=== PATIENT | female | born 1930 | race Caucasian/White ===

== ENCOUNTER → 2016-09-03 | Outpatient (CLI) | payer OTHER, BC | LOC: BMCIMAGING 10:46 | PROVIDERS: ATTEND Podiatrist Foot & Ankle Surgery | DX: M19.071 Primary osteoarthritis, right ankle and foot (principal) ==

== ENCOUNTER 2016-11-16 06:20 | Inpatient (IN) | payer OTHER, BC ==
[~2016-11-16 06:20] MED LIST: ROPIVACAINE 0.2% 80 MG, EPINEPHrine 0.2 MG in BAG 0 ML IU ONE
--- NOTE | 2016-11-16 06:43 | PDHPUP ---
History & Physical Update H&P update statement: This history and physical update is based on an assessment of the patient which was completed after admission or registration (within 24 hours), but prior to the surgery/procedure.
[2016-11-16] MEDS ORDERED: KETOROLAC 15 MG/1 ML SDV IVP ONE (06:45)
--- NOTE | 2016-11-16 06:45 | PDIAF ---
- Diagnosis Diagnosis: left shoulder fracture Code Status: Full Code - Medication Management Discharge Medications: Medications to Continue on Transfer Atorvastatin Calcium [Lipitor 40 mg (*)] 40 mg PO DAILY@1900 07/16/14 [Last Taken 08/04/14] Azelastine HCl [Astepro] 1 spray EACHNARE DAILY PRN 07/16/14 [Last Taken ] Clopidogrel Bisulfate [Plavix (*)] 75 mg PO DAILY 07/16/14 [Last Taken 11/10/16 11:10] Lisinopril [Zestril 40 mg (*)] 40 mg PO BID 07/16/14 [Last Taken 08/06/14] C/E/Zn/Cu/OM3/DHA/EPA/LUT/ZEAX [Preservision Areds 2 Softgel] 1 each PO BID 02/05 [Last Taken Unknown] Carvedilol [Coreg (*)] 25 mg PO BIDMEAL 10/30/16 [Last Taken Unknown] Donepezil HCl [Aricept 5 MG (*)] 10 mg PO DAILY 10/30/16 [Last Taken Unknown] Herbals/Supplements -Info Only 1 each PO DAILY 10/30/16 [Last Taken Unknown] Multivitamins [Multivitamin (*)] 1 each PO DAILY 10/30/16 [Last Taken Unknown] Pantoprazole Sodium [Protonix 40mg (*)] 40 mg PO DAILY 10/30/16 [Last Taken Unknown] Timolol 0.5% [TIMOPTIC 0.5% (*)] 1 drops EACHEYE DAILY 10/30/16 [Last Taken Unknown] Discharge Medications: Refer to the Discharge Home Medication list for PRN reason. - Orders Services needed: Physical Therapy Activity/Weight Bearing Restrictions: pendulum rom. daily dressing changes. may shower without bandage. no soaking. sling when not performing pendulum exercises. f/u at two weeks. seek attn for increasing pain, drainage, or other complaint - Follow Up Care Current Providers and Referrals: Lana Griggs MD [Primary Care Provider] -
[2016-11-16] MEDS ORDERED: Azelastine Hcl [Astepro] 1 SPRAY EACHNARE PRN (06:48)
[2016-11-16] MEDS ORDERED: VANCOMYCIN HCL/NORMAL SALINE 250 ML IV SCH (07:00)
[2016-11-16] MEDS ORDERED: VANCOMYCIN PHARMACY TO DOSE MISC ONE (07:07)
[2016-11-16] MEDS ORDERED: LR 1,000 ML IV SCH (07:07)
[2016-11-16] MEDS ORDERED: ACETAMINOPHEN 500 MG TAB PO ONE (07:07)
[2016-11-16] MEDS ORDERED: LR 1,000 ML IV ONE (07:21)
[2016-11-16] MEDS ORDERED: LIDOCAINE 1% 2 ML INJ ID PRN (07:21)
[2016-11-16] MEDS ORDERED: THROMBIN (BOVINE) 5,000 UNIT VIAL TP ONE (07:27)
[2016-11-16] MEDS ORDERED: BACITRACIN 50,000 UNITS/10 ML SYR IRR ONE (07:28)
[2016-11-16] MEDS ORDERED: CALCIUM CHLORIDE 1 GM/10 ML INJ ONE (07:28)
[2016-11-16] MEDS ORDERED: POLYMYXIN B SULFATE 500,000 UNIT/10 ML SYR IRR ONE (07:29)
[2016-11-16] MEDS ORDERED: VANCOMYCIN HCL/NORMAL SALINE 250 ML IV ONE (07:30)
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
[2016-11-16] MEDS ORDERED: BUPIVACAINE 0.5% 30 ML SDV ONE (07:58)
[2016-11-16] MEDS ORDERED: fentaNYL 100 MCG/2 ML INJ ONE (08:01)
[2016-11-16] MEDS ORDERED: PROPOFOL 200 MG/20 ML VIAL ONE (08:01)
[2016-11-16] MEDS ORDERED: PHENYLEPHRINE 10 MG/ML SDV ONE (08:02)
[2016-11-16] MEDS ORDERED: LIDOCAINE 2% 5 ML SDV ONE (08:02)
[2016-11-16] MEDS ORDERED: DEXAMETHASONE 4 MG/ML VIAL ONE (08:02)
[2016-11-16] MEDS ORDERED: ROCURONIUM 100 MG/10 ML VIAL ONE (08:02)
[2016-11-16] MEDS ORDERED: ONDANSETRON 4 MG/2 ML VIAL ONE (08:02)
[2016-11-16] MEDS ORDERED: Herbals/Supplements -Info Only PO SCH (09:00)
[2016-11-16] MEDS ORDERED: HYDROmorphONE/DILAUDID 1 MG/ML SYR IVP PRN (10:08)
[2016-11-16] MEDS ORDERED: NALOXONE HCL 0.4 MG/ML INJ IVP PRN (10:08)
[2016-11-16] MEDS ORDERED: fentaNYL 100 MCG/2 ML INJ IVP PRN (10:08)
[2016-11-16] MEDS ORDERED: PROMETHAZINE HCL 25 MG/ML INJ IVP PRN (10:08)
[2016-11-16] MEDS ORDERED: ONDANSETRON 4 MG/2 ML VIAL IVP PRN (10:08)
--- NOTE | 2016-11-16 10:39 | POSTANESTH ---
Post Anesthetic Evaluation Cardiovascular Status: Normal, Stable Respiratory Status: Normal, Stable Level of Consciousness/Mental Status: Can Participate in Eval Pain Control: Adequate, Prn Tx Ordered Nausea/Vomiting Control: Adequate, Prn Tx Ordered Complications Possibly Related to Anesthesia: None Noted
[2016-11-16] MEDS ORDERED: KETOROLAC 15 MG/1 ML SDV ONE (11:28)
[2016-11-16] MEDS: D5W 1/2 NS W/ 20 KCl/L 1,000 ML IV SCH ×2 (12:50→23:35)
[2016-11-16] MEDS: PRESERVISION AREDS2 FORMULA EYE VIT 1 EACH PO SCH ×2 (12:53→20:01)
[2016-11-16] MEDS: CARVEDILOL 25 MG TAB PO SCH ×2 (12:53→17:11)
[2016-11-16] MEDS: DONEPEZIL HCL 5 MG TAB PO SCH (12:53)
[2016-11-16] MEDS: LISINOPRIL 40 MG TAB PO SCH ×2 (12:54→20:01)
[2016-11-16] MEDS: KETOROLAC 15 MG/1 ML SDV IVP SCH ×3 (12:54→23:29)
[2016-11-16] MEDS: PANTOPRAZOLE SODIUM 40 MG TAB PO SCH (12:56)
[2016-11-16] MEDS: MULTIVITAMINS 1 EACH TAB PO SCH (12:56)
[2016-11-16] MEDS: TIMOLOL 0.5% 15 ML OPHT.BTL EACHEYE SCH (12:56)
[2016-11-16] MEDS: ATORVASTATIN CALCIUM 40 MG TAB PO SCH (17:10)
[2016-11-17] MEDS: OXYCODONE/APAP 5/325 TAB PO PRN ×6 (04:05→22:56)
[2016-11-17] MEDS: KETOROLAC 15 MG/1 ML SDV IVP SCH (05:20)
--- NOTE | 2016-11-17 08:16 | GDS ---
[f rep st] DISCHARGE SUMMARY ADMISSION DIAGNOSIS: Left proximal humerus fracture. DISCHARGE DIAGNOSIS: Left proximal humerus fracture. PROCEDURE: Left reverse total shoulder arthroplasty. OPERATIVE INDICATIONS: The patient is an 86-year-old woman who sustained a mechanical fall and comp bradley fracture to her proximal humerus of her left arm. She has gross comminution and displacement of articular surface. I have recommended surgical intervention with reverse shoulder replacement give n the disruption of her bony anatomy and rotator cuff. She understood the risks, benefits, alternat indu, and wished to proceed. Written consent was signed and placed in patient's chart. HOSPITAL COURSE: The patient was admitted to the hospital after uncomplicated reverse shoulder arth roplasty. She tolerated the procedure well. She did have an interscalene block placed by Anesthesi a for postoperative pain relief. At the time of discharge, she is tolerating an oral diet. Her katia n is well controlled on oral medicine. She is voiding without difficulty. She has been cleared by Physical Therapy. She desires subacute nursing placement. DISCHARGE ACTIVITY: She is pendulum range of motion. Otherwise, she is in a sling. Daily dressing changes. May shower without the bandage. No soaking or immersion. Seek attention for increasing redness, swelling, drainage, discharge, or other focal complaint. DISCHARGE MEDICATIONS: Oxycodone 5 mg 1-2 every 4 hours p.r.n. pain. She may resume her Plavix in 48 hours. /[id number]/MODL
[2016-11-17] MEDS: CARVEDILOL 25 MG TAB PO SCH ×2 (08:32→18:03)
[2016-11-17] MEDS: DONEPEZIL HCL 5 MG TAB PO SCH (08:33)
[2016-11-17] MEDS: MULTIVITAMINS 1 EACH TAB PO SCH (08:33)
[2016-11-17] MEDS: PRESERVISION AREDS2 FORMULA EYE VIT 1 EACH PO SCH ×2 (08:33→21:15)
[2016-11-17] MEDS: LISINOPRIL 40 MG TAB PO SCH ×2 (08:34→21:15)
[2016-11-17] MEDS: PANTOPRAZOLE SODIUM 40 MG TAB PO SCH (08:34)
[2016-11-17] MEDS: TIMOLOL 0.5% 15 ML OPHT.BTL EACHEYE SCH (10:16)
[2016-11-17] MEDS: ATORVASTATIN CALCIUM 40 MG TAB PO SCH (19:33)
[2016-11-17] MEDS ORDERED: ONDANSETRON 4 MG/2 ML VIAL IVP PRN (20:43)
[2016-11-17] MEDS ORDERED: POLYETHYLENE GLYCOL 3350 17 GM PKT PO PRN (20:44)
[2016-11-17] MEDS ORDERED: LACTULOSE 20 GM/30 ML UDCUP PO PRN (20:44)
[2016-11-17] MEDS ORDERED: BISACODYL 10 MG SUPP PR PRN (20:44)
[2016-11-17] MEDS ORDERED: MAGNESIUM HYDROXIDE 30 ML UDCUP PO PRN (20:44)
[2016-11-17] MEDS: ONDANSETRON DISINTEGRATING 4 MG TAB PO PRN (21:08)
[2016-11-17] MEDS: SENNOSIDES/DOCUSATE SODIUM TAB PO SCH (21:14)
[2016-11-18] MEDS: OXYCODONE/APAP 5/325 TAB PO PRN ×2 (01:57→14:16)
--- NOTE | 2016-11-18 06:38 | SOAPPROG ---
SOAP Progress Note Assessment/Plan: Assessment: s/p rev tsa Plan:awaiting 3 midnights for medicare clearance then transfer to [facility] no acute medical or surgical issues stable for transfer continue pt/ot 11/18/16 06:36 Subjective: nauseated yesterday currently pain control improved minimal nausea Objective: Vital Signs Temp Pulse Resp BP Pulse Ox 36.9 C 56 L 16 146/62 H 98 11/17/16 23:05 11/18/16 04:00 11/18/16 04:00 11/18/16 04:00 11/18/16 04:00 11/17/16 11/18/16 11/19/16 05:59 05:59 05:59 Intake Total 2760 400 Output Total 100 650 Balance 2660 -250 dressing intact intact pdf toes warm and pink neg homans vivien xrays anatomic alignment ICD10 Worksheet Patient Problems: Problems Problem Status Onset Ovarian cyst Acute
[2016-11-18] MEDS: PRESERVISION AREDS2 FORMULA EYE VIT 1 EACH PO SCH ×2 (08:20→21:27)
[2016-11-18] MEDS: CARVEDILOL 25 MG TAB PO SCH ×2 (08:20→18:18)
[2016-11-18] MEDS: SENNOSIDES/DOCUSATE SODIUM TAB PO SCH ×2 (08:21→21:27)
[2016-11-18] MEDS: DONEPEZIL HCL 5 MG TAB PO SCH (08:21)
[2016-11-18] MEDS: MULTIVITAMINS 1 EACH TAB PO SCH (08:21)
[2016-11-18] MEDS: ENOXAPARIN 40 MG/0.4 ML SYR SC SCH (08:21)
[2016-11-18] MEDS: PANTOPRAZOLE SODIUM 40 MG TAB PO SCH (08:21)
[2016-11-18] MEDS: LISINOPRIL 40 MG TAB PO SCH ×2 (08:21→22:47)
[2016-11-18] MEDS: TIMOLOL 0.5% 15 ML OPHT.BTL EACHEYE SCH (08:23)
[2016-11-18 11:18] VITALS: RESP 16
--- NOTE | 2016-11-18 16:37 | ASMTCMCOM ---
CM Note CM Note Notes: Therapies rec SNF. Yesterday referrals sent to [facility] \T\ [facility] per pt/family request : pt accepted at both; would like to d/c to [facility]. PASRR completed \T\ in chart. Date Signed: 11/18/2016 04:36 PM Electronically Signed By:Yajaira Smith
[2016-11-18] MEDS: ATORVASTATIN CALCIUM 40 MG TAB PO SCH (18:18)
[2016-11-19] MEDS: ONDANSETRON DISINTEGRATING 4 MG TAB PO PRN (00:29)
[2016-11-19] MEDS: OXYCODONE/APAP 5/325 TAB PO PRN (04:29)
[2016-11-19 07:26] VITALS: BP 132/64; PULSE 59; TEMP 98; O2SAT 98
--- NOTE | 2016-11-19 07:38 | GOP ---
[f rep st] OPERATIVE REPORT DATE OF OPERATION: 11/16/2016 SURGEON: Colton Benton MD WHEEL ASSEMBLER: Charles Epps, SMALL ARMS ARTILLERY REPAIRER, METAL FINISHER, surgical rn who was a medical necessity for the entire ty of the case. PREOPERATIVE DIAGNOSIS: Left proximal humerus fracture and rotator cuff disruption. POSTOPERATIVE DIAGNOSIS: Left proximal humerus fracture and rotator cuff disruption. PROCEDURE PERFORMED: Left reverse total shoulder arthroplasty. FINDINGS: SPECIMENS: To Pathology, the bony explant of the head. INDICATIONS: The patient is an 86-year-old woman who sustained a mechanical fall and a complex frac ture to her left proximal humerus fracture. She has disruption of her glenohumeral joint with fract uring of the articular surface and disruption of her rotator cuff. Given her age and this fracture, I have recommended surgical replacement with a reverse total shoulder arthroplasty to facilitate ea rly range of motion and early functional recovery. She understood the risks, benefits, and alternat indu, and wished to proceed. Written consent was signed and placed in the patient's chart. DESCRIPTION OF PROCEDURE: The patient was identified in the preanesthesia area. The left shoulder clearly demarcated as operative site with indelible marker. She was given 2 g of Ancef intravenousl y en route to the operative suite. In the OR, general endotracheal anesthesia was administered. At tention was turned to the left shoulder which was sterilely prepped and draped in the usual fashion. An interscalene block was placed by Anesthesia. She was positioned in the beach chair position af ter general endotracheal anesthesia. Appropriate time-out procedure was carried out. The limb was sterilely prepped and draped in the usual fashion. An anterior deltopectoral incision was made. Th ick subcutaneous flaps were elevated followed by placement of a self-retained retractor in the deep tissues. The rotator cuff interval was opened. The biceps tendon tagged for later repair and the s houlder entered. The articular surface was fragmented and pointed directly superior. The greater t uberosity was fragmented with attachment of the overlying rotator cuff. The proximal cut was made w ith the arm in 20 degrees of external rotation and the proximal fragment of the head withdrawn. Howie e marginal small fragments of bone were likewise irrigated free. Attention was first turned to the glenoid. Retractors were placed, Facilitating full visualization of the glenoid. The remnants of t he shoulder labrum were sharply excised. A guide pin was placed in the central inferior portion of the glenoid surface. The surrounding periphery was then reamed. The superior aspect of the glenoid was reamed with a separate reamer and the central canal placed. A metaglene component was then sec ured with 3 locking and 1 nonlocking screw. A 38 mm glenosphere was then placed and attention turne d to the stem. The canal was opened and serial broaching carried out to a size 10 stem. A reaming for a size 1 asymmetrical apophyses was then placed. This was secured in a 10 degree retroverted po sition and trial reduction was carried out. Ultimately, a 38 mm +6 poly spacer was selected. The f inal stem was then assembled on the back table, impacted to the appropriate depth. Additional trial ing was carried out and a 38 mm +6 polyethylene spacer was then placed and secured. The wound was c opiously irrigated with pulsatile lavage solution. The rotator cuff was repaired with #1 Ethibond s uture to the best ability possible. The biceps was incorporated into this. Deep tissue was injecte d with a joint cocktail of ropivacaine, morphine, Toradol, and epinephrine. The wound was then clos ed in layers using 0 Vicryl, 2-0 Monocryl, and amy. Sterile dressing was applied. The patient was awakened, extubated, taken to the recovery room in good, stable condition. TOTAL TOURNIQUET TIME: None. COMPLICATIONS: None. IMPLANTS: DePuy Delta Xtend metaglene component, 4 screws, 38 mm standard glenosphere, size 10 dist al stem, size 1 left epiphysis and a 38+ 6 mm polyethylene. DISPOSITION: To the recovery room then the floor for postoperative management. /[id number]/MODL
[2016-11-19] MEDS: ENOXAPARIN 40 MG/0.4 ML SYR SC SCH (08:36)
[2016-11-19] MEDS: SENNOSIDES/DOCUSATE SODIUM TAB PO SCH (08:37)
[2016-11-19] MEDS: MULTIVITAMINS 1 EACH TAB PO SCH (08:37)
[2016-11-19] MEDS: LISINOPRIL 40 MG TAB PO SCH (08:38)
[2016-11-19] MEDS: PRESERVISION AREDS2 FORMULA EYE VIT 1 EACH PO SCH (08:39)
[2016-11-19] MEDS: DONEPEZIL HCL 5 MG TAB PO SCH (08:43)
[2016-11-19] MEDS: CARVEDILOL 25 MG TAB PO SCH (08:43)
[2016-11-19] MEDS: PANTOPRAZOLE SODIUM 40 MG TAB PO SCH (08:44)
--- NOTE | 2016-11-19 08:49 | PDIAF ---
- Diagnosis Diagnosis: left shoulder fracture Code Status: Full Code - Medication Management Discharge Medications: Medications to Continue on Transfer Atorvastatin Calcium [Lipitor 40 mg (*)] 40 mg PO DAILY@1900 07/16/14 [Last Taken 11/15/16] Azelastine HCl [Astepro] 1 spray EACHNARE DAILY PRN 07/16/14 [Last Taken ] Lisinopril [Zestril 40 mg (*)] 40 mg PO BID 07/16/14 [Last Taken 11/15/16] C/E/Zn/Cu/OM3/DHA/EPA/LUT/ZEAX [Preservision Areds 2 Softgel] 1 each PO BID 02/05 [Last Taken 11/09/16] Carvedilol [Coreg (*)] 25 mg PO BIDMEAL 10/30/16 [Last Taken 11/16/16] Donepezil HCl [Aricept 5 MG (*)] 10 mg PO DAILY 10/30/16 [Last Taken 11/16/16] Herbals/Supplements -Info Only 1 each PO DAILY 10/30/16 [Last Taken 11/09/16] Multivitamins [Multivitamin (*)] 1 each PO DAILY 10/30/16 [Last Taken 11/09/16] Pantoprazole Sodium [Protonix 40mg (*)] 40 mg PO DAILY 10/30/16 [Last Taken ] Timolol 0.5% [TIMOPTIC 0.5% (*)] 1 drops EACHEYE DAILY 10/30/16 [Last Taken ] oxyCODONE/APAP 5/325 [Percocet 5/325 (*)] 1 - 2 tab PO Q3HRS PRN #60 tab [Last Taken Unknown] Discharge Medications: Refer to the Discharge Home Medication list for PRN reason. - Orders Services needed: Physical Therapy, Occupational Therapy Diet Recommendation: no restrictions on diet Diet Texture: Regular Texture Diet Activity/Weight Bearing Restrictions: pendulum rom. daily dressing changes. may shower without bandage. no soaking. sling when not performing pendulum exercises. f/u at two weeks. seek attn for increasing pain, drainage, or other complaint - Follow Up Care Current Providers and Referrals: Lana Griggs MD [Primary Care Provider] -
[2016-11-19] MEDS: TIMOLOL 0.5% 15 ML OPHT.BTL EACHEYE SCH (09:45)
--- NOTE | 2016-11-19 15:16 | ASDISCHSUM ---
Discharge Information Plan Status:SNF Medically Cleared to Leave: Discharge Date:11/19/2016 12:29 PM D/C Disposition:Care Home Facility ADT D/C Disposition:Care Home Facility Projected Discharge Date:11/18/2016 11:00 AM Transportation at D/C:Family Discharge Delay Reason: Follow-Up Date:11/18/2016 11:00 AM Discharge Slot: Final Diagnosis: Placement Information Referral Type:*Detention/SNF Referral ID:[id number] Provider Name:[facility] Address 1:[address] Address 2: City:[place] Selection Factors: State:[place] Patient Contact Information Contact Name:YESSI Relationship:Son Address: City:[place] Alternate Phone: State/Zip Code:[place] Email: Financial Information Financial Class: Primary Plan Desc:MEDICARE INPATIENT Primary Plan Number:[id number] Secondary Plan Desc: OUT OF [facility] Secondary Plan Number:[id number] Assessment Information BC CM Progress Note CM Note CM Note Notes: Therapies rec SNF. Yesterday referrals sent to [facility] \\ [facility] per pt/family request: pt accepted at both; would like to d/c to [facility]. PANDYA completed \T\ in chart. Date Signed: 11/18/2016 04:36 PM Electronically Signed By:Yajaira Smith Intervention Information Intervention Type:*IM-Signed Date of Service:11/19/2016 12:22 PM Patient Type:Inpatient Staff Member:Angela Duffy Hours: Discipline: Severity: Comment:
--- NOTE | 2016-11-19 15:18 | ASMTCMCOM ---
CM Note CM Note Notes: Pt medically stable for d/c to [facility]. Orders faxed, L[facility] called report. Pt son transport her. Date Signed: 11/19/2016 03:18 PM Electronically Signed By:Yajaira Smith
== END 2016-11-19 12:29 | DRG 483 ==
LOC: F3N 06:20
PROVIDERS: ADMIT Orthopaedic Surgery; ATTEND Orthopaedic Surgery
PROC: 0RRK00Z Replacement of Left Shoulder Joint with Reverse Ball and Socket Synthetic Substitute, Open Approach (ICD-10-PCS; principal; 2016-11-16 08:30)
DX: S42.202A Unspecified fracture of upper end of left humerus, initial encounter for closed fracture (principal); S43.422A Sprain of left rotator cuff capsule, initial encounter; V78.4XXA Person boarding or alighting from bus injured in noncollision transport accident, initial encounter; E78.5 Hyperlipidemia, unspecified; K21.9 Gastro-esophageal reflux disease without esophagitis; I10 Essential (primary) hypertension; I25.10 Atherosclerotic heart disease of native coronary artery without angina pectoris; Z95.5 Presence of coronary angioplasty implant and graft; Z85.3 Personal history of malignant neoplasm of breast; Y92.9 Unspecified place or not applicable
CPT/HCPCS: 97110-GP; 97116-GP; 97162-GP; 97165-GO; 97535-GO; C1713; G8978-GP-CJ; G8979-GP-CI; G8987-GO-CK; G8988-GO-CI; J0171; J1100; J1650; J1885; J2370; J2405; J2704; J2795; J3010; J3370

== ENCOUNTER → 2017-01-01 | Outpatient (CLI) | payer OTHER, BC | LOC: BMCIMAGING 13:18 | PROVIDERS: ATTEND Physician Assistant | DX: Z47.1 Aftercare following joint replacement surgery (principal); Z96.612 Presence of left artificial shoulder joint ==

== ENCOUNTER → 2017-02-15 | Outpatient (CLI) | payer OTHER, BC | LOC: BMCIMAGING 09:26 | PROVIDERS: ATTEND Orthopaedic Surgery | DX: Z09 Encounter for follow-up examination after completed treatment for conditions other than malignant neoplasm (principal); Z96.612 Presence of left artificial shoulder joint ==

== ENCOUNTER 2017-04-03 23:31 | Inpatient (IN) | payer OTHER, BC ==
[2017-04-03] MEDS ORDERED: NS 500 ML IV ONE (23:34)
--- NOTE | 2017-04-03 23:37 | EDPHY ---
H & P HPI/ROS: HPI CHIEF COMPLAINT: Chest pain HISTORY OF PRESENT ILLNESS: Patient very pleasant 86-year-old female, history of hypertension hyperlipidemia and coronary artery disease with 2 stents, she presents to the emergency room by EMS from [facility] for chest pain. She she states she no longer has chest discomfort that this time. However for the past 4 hr she has been having some substernal chest discomfort she describes as indigestion/dull ache. It does not radiate anywhere. She has associated nausea with but no vomiting. She denies neck pain jaw pain denies arm pain or back pain. Denies abdominal pain. This started at rest. No diaphoresis. Denies pleuritic pain. Denies significant shortness of breath. Patient receive full-dose aspirin and nitroglycerin prior to arrival. After nitroglycerin her discomfort went away. Past Medical History: Hypertension, hyperlipidemia, coronary artery disease Past Surgical History: Multiple surgeries including multiple orthopedic surgeries, appendectomy Social History: Denies daily use of drugs alcohol tobacco resides at [facility]. Family History: Noncontributory ROS REVIEW OF SYSTEMS: A comprehensive 10 point review of systems is otherwise negative aside from elements mentioned in the history of present illness. Exam Constitutional appears well nontoxic triage nursing summary reviewed, vital signs reviewed, awake/alert. Eyes normal conjunctivae and sclera, EOMI, PERRLA. HENT normal inspection, atraumatic, moist mucus membranes, no epistaxis, neck supple/ no meningismus, no raccoon eyes. Respiratory clear to auscultation bilaterally, normal breath sounds, no respiratory distress, no wheezing. Cardiovascular rate normal, regular rhythm, no murmur, no edema, distal pulses normal. Gastrointestinal soft, non-tender, no rebound, no guarding, normal bowel sounds, no distension, no pulsatile mass. Genitourinary no CVA tenderness. Musculoskeletal no midline vertebral tenderness, full range of motion, no calf swelling, no tenderness of extremities, no meningismus, good pulses, neurovascularly intact. Skin pink, warm, & dry, no rash, skin atraumatic. Neurologic awake, alert and oriented x 3, AAOx3, moves all 4 extremities equally, motor intact, sensory intact, CN II-XII intact, normal cerebellar, normal vision, normal speech. Psychiatric normal mood/affect. Heme/Lymph/Immune no lymphadenopathy. Differential diagnosis includes but is not limited to: ACS, atypical chest pain , pneumothorax, pneumonia, pulmonary embolism, aortic dissection, congestive heart failure, tumor, musculoskeletal pain, esophageal pain, GERD, peptic ulcer disease, pancreatitis Medical Decision Making: Plan for this patient IV establishment full manager cardiac cath, EKG, troponin, basic blood work, chest x-ray Re-evaluation: EKG interpretation by me on record in [employer] system. Impression time of EKG 2348, sinus rhythm rate of 56. Otherwise no acute ischemic change appreciated. No ST elevation. 1237: Spoke with the hospitalist service Dr. Mulligan, agrees to admit this patient for chest discomfort. She is chest pain-free at this time. Vital signs are hemodynamically stable. Noted to have a negative D-dimer negative troponin nonischemic EKG. Patient's cardiovascular risk factors include her age, hypertension, hyperlipidemia, coronary artery disease with known stents Source: Patient, EMS - Medical/Surgical History Hx Asthma: No Hx Chronic Respiratory Disease: No Hx Diabetes: No Hx Cardiac Disease: No Hx Renal Disease: No Hx Cirrhosis: No Hx Alcoholism: No Hx HIV/AIDS: No Hx Splenectomy or Spleen Trauma: No Other PMH: rt ka. cataract. l4-5 lami. angioplasty, 2 stents. lumpectomy for brst ca right// colitis and chronic constipation: BSO a few years ago for cyst. appy. tonsils. hand and foot surgey - Social History Smoking Status: Former smoker Constitutional: Initial Vital Signs Temperature (C) 36.4 C 04/03/17 23:34 Heart Rate 62 04/03/17 23:34 Respiratory Rate 18 04/03/17 23:34 Blood Pressure 142/65 H 04/03/17 23:34 O2 Sat (%) 95 04/03/17 23:34 O2 Delivery Mode Room Air O2 (L/minute) 2 Allergies/Adverse Reactions: amoxicillin [Amoxicillin] Allergy (Unknown, Verified 11/03/16 10:54) Rash diclofenac sodium [From Voltaren] Allergy (Unknown, Verified 11/03/16 10:54) Rash lactose Allergy (Verified 04/03/17 23:56) Opioids - Morphine Analogues Allergy (Verified 11/03/16 10:54) Itching Penicillins Allergy (Verified 11/03/16 10:54) Rash sunscreen lotion Allergy (Unknown, Uncoded 07/23/14 11:38) Rash Home Medications: Medication Instructions Recorded Atorvastatin Calcium [Lipitor 40 40 mg PO DAILY@1900 07/16/14 mg (*)] Azelastine HCl [Astepro] 1 spray EACHNARE DAILY PRN 07/16/14 Lisinopril [Zestril 40 mg (*)] 40 mg PO BID 07/16/14 C/E/Zn/Cu/OM3/DHA/EPA/LUT/ZEAX 1 each PO BID 10/30/16 [Preservision Areds 2 Softgel] Carvedilol [Coreg (*)] 25 mg PO BIDMEAL 10/30/16 Donepezil HCl [Aricept 5 MG (*)] 10 mg PO DAILY 10/30/16 Herbals/Supplements -Info Only 1 each PO DAILY 10/30/16 Multivitamins [Multivitamin (*)] 1 each PO DAILY 10/30/16 Pantoprazole Sodium [Protonix 40mg 40 mg PO DAILY 10/30/16 (*)] Timolol 0.5% [TIMOPTIC 0.5% (*)] 1 drops EACHEYE DAILY 10/30/16 Medical Decision Making - Diagnostics Imaging Results: Imaging Impressions Chest X-Ray 04/03/17 23:34 Impression: Clear lungs. No acute process. - Data Points Laboratory Results: Laboratory Results 04/03/17 23:30 04/03/17 23:30 04/03/17 04/03/17 04/03/17 23:30 23:30 23:30 WBC 4.97 10^3/uL 10^3/uL (3.80-9.50) RBC 4.25 10^6/uL 10^6/uL (4.18-5.33) Hgb 13.9 g/dL g/dL (12.6-16.3) Hct 38.0 % % (38.0-47.0) MCV 89.4 fL fL (81.5-99.8) MCH 32.7 pg pg (27.9-34.1) MCHC 36.6 g/dL g/dL (32.4-36.7) RDW 12.5 % % (11.5-15.2) Plt Count 176 10^3/uL 10^3/uL (150-400) MPV 11.8 fL H fL (8.7-11.7) Neut % (Auto) 34.8 % L % (39.3-74.2) Lymph % (Auto) 52.7 % H % (15.0-45.0) Dolores % (Auto) 9.1 % % (4.5-13.0) Eos % (Auto) 2.8 % % (0.6-7.6) Baso % (Auto) 0.4 % % (0.3-1.7) Nucleat RBC Rel Count 0.0 % % (0.0-0.2) Absolute Neuts (auto) 1.73 10^3/uL 10^3/uL (1.70-6.50) Absolute Lymphs (auto) 2.62 10^3/uL 10^3/uL (1.00-3.00) Absolute Monos (auto) 0.45 10^3/uL 10^3/uL (0.30-0.80) Absolute Eos (auto) 0.14 10^3/uL 10^3/uL (0.03-0.40) Absolute Basos (auto) 0.02 10^3/uL 10^3/uL (0.02-0.10) Absolute Nucleated RBC 0.00 10^3/uL 10^3/uL (0-0.01) Immature Gran % 0.2 % % (0.0-1.1) Immature Gran # 0.01 10^3/uL 10^3/uL (0.00-0.10) PT 12.7 SEC SEC (12.0-15.0) INR 0.93 (0.83-1.16) APTT 33.7 SEC SEC (23.0-38.0) D-Dimer 0.40 ug/mLFEU ug/mLFEU (0.00-0.50) Sodium 141 mEq/L mEq/L (135-145) Potassium 4.4 mEq/L mEq/L (3.5-5.2) Chloride 101 mEq/L mEq/L (97-110) Carbon Dioxide 24 mEq/l mEq/l (22-31) Anion Gap 16 mEq/L mEq/L (8-16) BUN 14 mg/dL mg/dL (7-23) Creatinine 0.9 mg/dL mg/dL (0.6-1.0) Estimated GFR 60 Glucose 127 mg/dL H mg/dL (70-100) Calcium 10.6 mg/dL H mg/dL (8.5-10.4) Magnesium 1.9 mg/dL mg/dL (1.6-2.3) Total Bilirubin 0.4 mg/dL mg/dL (0.1-1.4) Conjugated Bilirubin 0.2 mg/dL mg/dL (0.0-0.5) Unconjugated Bilirubin 0.2 mg/dL mg/dL (0.0-1.1) AST 28 IU/L IU/L (14-46) ALT 42 IU/L IU/L (9-52) Alkaline Phosphatase 98 IU/L IU/L (38-126) Creatine Kinase 106 IU/L IU/L (0-156) CK-MB (CK-2) Fraction 2.29 ng/mL ng/mL (0.00-3.19) Troponin I < 0.012 ng/mL ng/mL (0.000-0.034) NT-Pro-B Natriuret Pep 144 pg/mL pg/mL (0-450) Total Protein 6.5 g/dL g/dL (6.3-8.2) Albumin 4.4 g/dL g/dL (3.5-5.0) Lipase 202 IU/L IU/L (23-300) Medications Given: Discontinued Medications Sodium Chloride (Ns) 500 mls @ 1,000 mls/hr IV EDNOW ONE PRN Reason: Protocol Stop: 04/04/17 00:03 Last Admin: 04/03/17 23:45 Dose: 500 mls Nitroglycerin (Nitrostat) 0.4 mg SL EDNOW ONE Stop: 04/04/17 00:28 Last Admin: 04/04/17 00:28 Dose: 0.4 mg Departure - Departure Disposition: [facility] Inpatient Acute Clinical Impression: Chest pain Qualifiers: Chest pain type: unspecified Qualified Code(s): R07.9 - Chest pain, unspecified Condition: Fair Referrals: Patient,NotPresent [Unknown] - As per Instructions
[2017-04-03 23:47] LABS: PLATELET COUNT 176 10^3/uL (150-400)
--- NOTE | 2017-04-03 23:50 | CPEKG ---
Heart Rate: 56 RR Interval: 1071 P-R Interval: 160 QRSD Interval: 86 QT Interval: 432 QTC Interval: 417 P [place]: 70 QRS [place]: 55 T Wave [place]: 68 EKG Severity - BORDERLINE ECG - EKG Impression: SINUS RHYTHM EKG Impression: BORDERLINE INFERIOR Q WAVES Electronically Signed By: Lasha Shoemaker 04-Apr-2017 06:33:47
[2017-04-03 23:55] LABS: INR 0.93 (0.83-1.16); PROTIME(PATIENT) 12.7 SEC (12.0-15.0)
[2017-04-03 23:58] LABS: CREATINE KINASE 106 IU/L (0-156)
[2017-04-04] MEDS ORDERED: NITROGLYCERIN 0.4 MG BTL SL ONE ×2 (00:26→00:27)
[2017-04-04] MEDS ORDERED: ACETAMINOPHEN 325 MG TAB PO PRN (01:14)
[2017-04-04] MEDS ORDERED: ONDANSETRON 4 MG/2 ML VIAL IVP PRN (01:14)
[2017-04-04] MEDS ORDERED: NITROGLYCERIN 0.4 MG BTL SL PRN (01:16)
[2017-04-04 06:34] LABS: CREATINE KINASE 78 IU/L (0-156)
--- NOTE | 2017-04-04 06:50 | GHP ---
[f rep st] HISTORY AND PHYSICAL DATE OF ADMISSION: 04/04/2017 PCP: Dr. Griggs Primary Computer Typesetter: Dr. Guerrero. SOURCE: Patient provides history, appears reliable. Her electronic medical record was reviewed and case discussed with ED provider. CHIEF COMPLAINT: Chest pain. HISTORY OF PRESENT ILLNESS: This is a very pleasant 86-year-old female with past medical history significant for CAD with history of stent to the LAD in 2010, hypertension, hyperlipidemia, GERD, glaucoma, and IBS with constipation predominant, who presents to the emergency department today with complaints of chest pain. Patient reports that the pain had been ongoing for approximately 4 hours following her dinner. Patient states that she developed some mild substernal pressure and discomfort. She denies any associated shortness of breath, diaphoresis, radiating pain. Patient states she took her bra off to get more comfortable, which did help minimally, but her chest pain continued to progress and patient's discomfort escalated to 7 to 8/10 before EMS was called, and patient received nitroglycerin with resolution of her chest discomfort. Patient also received full-dose aspirin prior to her arrival in the emergency department, and upon arrival patient's chest pain had subsided. The patient denies any recent orthopnea, PND, lower extremity edema. The patient reports that she is generally quite active. She has recently transferred to [facility] for additional rehabilitation following a fall status post a left total shoulder replacement. The patient reports that she does try to remain active and has not had any chest pain similar to this in the past. The patient also notes that she is late for her annual stress testing due to her recent fall and recovery. REVIEW OF SYSTEMS: Negative except for GI. Patient is reporting constipation of 1 day, 24 hours, which is not unusual with her history of IBS constipation type. ALLERGIES: Penicillin, opiates, Voltaren gel, sunscreen. HOME MEDICATIONS: As per EMR: Timolol, Protonix 40 daily, multivitamin daily, lisinopril 40 mg p.o. twice daily, herbal supplements p.o. daily, Aricept 10 mg p.o. daily, Coreg 25 mg p.o. twice daily with meals, PreserVision AREDS2 soft gels 1 tab p.o. twice daily, Azelastine 1 spray in each nare daily p.r.n., atorvastatin 40 mg p.o. at nighttime. PAST MEDICAL HISTORY: Significant for hypertension, CAD with history of stent to the LAD in 2011, hyperlipidemia, GERD, breast cancer, dementia, glaucoma, IBS constipation type. PAST SURGICAL HISTORY: Significant for appendectomy, wisdom tooth removal, right lumpectomy in age 50s, cardiac cath with stent to LAD, left total shoulder arthroplasty, cataract extraction with lens placement. FAMILY HISTORY: Significant for father with CAD and age 72 from an ID. Mother with history of hypertension, at 93 with multiple other medical problems. Son who is healthy. SOCIAL HISTORY: Patient resides at [facility] in an apartment. She does not currently smoke, drink, or do drugs. She reports only rare alcohol use. She quit smoking age 48, but has a 30 pack-year history. CODE STATUS: Full. Patient desires son Coy Yun to act as proxy if needed. PHYSICAL EXAMINATION: VITAL SIGNS: Upon arrival to the ER, blood pressure 142/ 65, heart rate 62, respiratory rate 18, O2 saturation 95% on room air with a temperature 36.4. VITAL SIGNS: Vitals at time of interview available, blood pressure 150/69, heart rate 56, respiratory rate 18, O2 sats 93% on room air. GENERAL: No acute distress. Very pleasant, elderly, frail-appearing female who is lying quietly in bed. She does appear fatigued. HEAD: Normocephalic, atraumatic. EYES: Extraocular muscles grossly intact. Pupils equal, round, reactive to light bilaterally and symmetric. Lens reflex appreciated bilaterally. ENT: Mucous membranes appear slightly dry. Dentition in fair condition. No oropharyngeal erythema or exudates. No nasal discharge. NECK: Supple. Trachea midline. CV: Regular rate and rhythm, slightly bradycardic, without any appreciated murmurs, rubs, or gallops. RESPIRATORY: Lungs are clear to auscultation bilaterally. Diminished at the bases. No wheezes, no rales or rhonchi. ABDOMEN: Positive bowel sounds. Soft, nontender to palpation. No rebound, guarding or masses. : No suprapubic tenderness to palpation. No Lehman catheter in place. EXTREMITIES: Patient with generalized deconditioning. 4/5 strength in the upper and lower extremities. The patient is able to sit up independently. NEURO: Grossly nonfocal. No facial drooping. Moves all extremities. Patient is awake, alert, and oriented x3. PSYCH: Thought process content and questions are currently appropriate. LABORATORY STUDIES: WBC 4.97, H and H is 13.9 and 38.0, MCV of 89.4, platelet count is 176, no bands. PT is 12.7, INR 0.93, PTT is 33.7, D-dimer 0.40. Sodium is 141, potassium 4.4, chloride is 101, CO2 is 24, anion gap 16, BUN 14, creatinine 0.9, GFR 60, glucose 127, calcium 10.6, magnesium is 1.9, total bilirubin 0.4, ALT 42, AST 28, alkaline phosphatase 98, CK is 106, CK-MB is 2.29 , troponins are negative, BTNP is 144, total protein 6.5, albumin 4.4, lipase is 202. EKG reviewed myself and compared to EKG in 2010, without significant changes showing small Q-waves in the inferolateral leads, no acute ST elevations, sinus vasquez in the 50s, QTc is 417. Chest x-ray image report reviewed, minimal diffuse peribronchial thickening unchanged since May 2010, normal heart size, stent overlying left side of the heart unchanged, reversed left shoulder arthroplasty. ASSESSMENT AND PLAN: Pleasant 86-year-old female with history of coronary artery disease, hypertension, hyperlipidemia, who presents to the emergency department with 4 hours of chest discomfort. 1. Chest pain. Differential diagnosis including angina versus pleuritic versus reflux related. Patient's chest pain did improve following a dose of nitroglycerin. Her initial EKG and troponin are nondiagnostic. We will plan to trend cardiac enzymes. Nitroglycerin p.r.n. The patient with allergy to opiates, so will hold off currently. Symptoms are controlled. Patient with multiple risk factors, and anticipate if ruled out, cardiac stress testing in the morning. Patient with history of fall injury and significant arthritis, will be unable to complete a treadmill stress test. A dobutamine stress test will be ordered after serial cardiac enzymes are negative. 2. Coronary artery disease. We will check a lipid panel. Continue Juan J and beta al as well as statin therapy and daily aspirin. 3. Benign essential hypertension. Juan J and beta al as noted above. 4. Hyperlipidemia. Continue statin. Check a lipid panel. 5. Hyperglycemia. Patient without history of diabetes, this is a nonfasting lab, we will plan to check in the morning, as well as obtain an A1c. 6. Glaucoma. Resume patient's drops once list is reconciled. 7. Irritable bowel syndrome with constipation. Bowel regimen will be ordered. 8. Dementia. The patient was recently started on Aricept for declining memory. Currently appears oriented x3. 9. Fluid, electrolyte, nutrition: Cardiac diet. N.p.o. after midnight. Electrolyte replacement p.r.n. No IV fluids. 10. Prophylaxis: Sequential compression devices. Anticoagulation, if no further intervention is appropriate after stress results. 11. Code status is full. Patient desires her son to act as proxy if needed. DISPOSITION: Patient is admitted to observation status at this time on PCU. This is pending further evaluation and cardiac studies. /[id number]/MODL MTDD
[2017-04-04] MEDS ORDERED: ENOXAPARIN 40 MG/0.4 ML SYR SC SCH (09:00)
--- NOTE | 2017-04-04 11:54 | CPEKG ---
Heart Rate: 56 RR Interval: 1071 P-R Interval: 168 QRSD Interval: 84 QT Interval: 420 QTC Interval: [address]: [address]: 77 EKG Severity - NORMAL ECG - EKG Impression: SINUS RHYTHM Electronically Signed By: Fareed Vargas 05-Apr-2017 04:30:40
[2017-04-04] MEDS ORDERED: AZELASTINE HCL EACHNARE PRN (14:09)
--- NOTE | 2017-04-04 14:11 | HOSPPROG ---
Hospitalist Progress Note Assessment/Plan: # Acute chest pain - began hours prior to presentation - troponin< 0.012 on admit -> 0.02 EKG (personally reviewed and interpreted) no acute ischemic changes oxygen saturations 95% on RA - repeat EKG remains unchanged - nuclear stress test this afternoon # CAD - as above - await stress results - cont plavix, statin, carvedilol and lisinopril # Dementia - cont aricept # proph - lovnox # diet- NPO until stress results # dispo - < 2MN if stress negative I have discussed the case with Dr. Vargas - plan for stress as 2nd EKG remains unchanged Subjective: cp resolved Objective: Vital Signs Temp Pulse Resp BP Pulse Ox 36.9 C 54 L 18 160/66 H 95 04/04/17 10:57 04/04/17 12:00 04/04/17 12:00 04/04/17 12:00 04/04/17 12:00 Laboratory Results 04/04/17 06:03 04/03/17 04/04/17 04/05/17 05:59 05:59 05:59 Intake Total 1000 Balance 1000 PT 12.7 SEC (12.0-15.0) 04/03/17 23:30 INR 0.93 (0.83-1.16) 04/03/17 23:30 - Physical Exam Constitutional: appears nourished Eyes: anicteric sclera Ears, Nose, Mouth, Throat: moist mucous membranes Cardiovascular: regular rate and rhythym, systolic murmur Respiratory: no respiratory distress Gastrointestinal: normoactive bowel sounds Genitourinary: no bladder fullness Skin: warm Musculoskeletal: No asymmetric calves Neurologic: AAOx3 Psychiatric: interacting appropriately, not anxious Lymph, Heme, Immunologic: no cervical LAD ICD10 Worksheet Patient Problems: Problems Problem Status Onset Chest pain Acute Ovarian cyst Acute
[2017-04-04] MEDS ORDERED: AZELASTINE NASAL MDI EACHNARE PRN (14:13)
[2017-04-04] MEDS: CARVEDILOL 25 MG TAB PO SCH (17:20)
--- NOTE | 2017-04-04 18:07 | PDMN ---
Medical Necessity Medical necessity: C/M review: est. > 2 MN LOS for eval and TX of acute chest pain, 04/04/2017 abnormal myocardial perfusion scan requiring planned 04/05/2016 myocardial perfusion scan, ongoing cardiac monitoring, troponin monitoring, comorbid CAD, dementia per 04/04/2017 Hospitalist progress note.
[2017-04-04] MEDS ORDERED: ATORVASTATIN CALCIUM 40 MG TAB PO SCH (19:00)
[2017-04-04] MEDS: PRESERVISION AREDS2 FORMULA EYE VIT 1 EACH PO SCH (21:00)
[2017-04-04] MEDS: LISINOPRIL 40 MG TAB PO SCH (21:03)
[2017-04-05] MEDS: PRESERVISION AREDS2 FORMULA EYE VIT 1 EACH PO SCH (08:29)
[2017-04-05] MEDS: LISINOPRIL 40 MG TAB PO SCH (08:29)
[2017-04-05] MEDS: CARVEDILOL 25 MG TAB PO SCH (08:29)
[2017-04-05] MEDS ORDERED: MULTIVITAMINS 1 EACH TAB PO SCH (09:00)
[2017-04-05] MEDS ORDERED: TIMOLOL 0.5% 15 ML OPHT.BTL EACHEYE SCH (09:00)
[2017-04-05] MEDS ORDERED: CLOPIDOGREL BISULFATE 75 MG TAB PO SCH (09:00)
[2017-04-05] MEDS ORDERED: PANTOPRAZOLE SODIUM 40 MG TAB PO SCH (09:00)
[2017-04-05] MEDS ORDERED: DONEPEZIL HCL 5 MG TAB PO SCH (09:00)
[2017-04-05 13:52] VITALS: BP 128/74; PULSE 57; RESP 17; TEMP 97.9; O2SAT 95
--- NOTE | 2017-04-05 18:42 | GDS ---
[f rep st] DISCHARGE SUMMARY DISCHARGE DIAGNOSES: Include. 1. Acute chest pain. 2. Coronary artery disease. 3. Hypertension. HISTORY OF PRESENT ILLNESS: This is an 86-year-old female with known history of coronary artery dise ase, who presents with complaints of chest pain. For details of the patient's initial presentation, please see the history and physical dated 04/04/2017. CONSULTATIVE SERVICES: None. PROCEDURES: On 04/04/2017, patient underwent myocardial stress testing which showed evidence of old infarction and no inducible ischemia. HOSPITAL COURSE: By issue: 1. Acute chest pain. Patient's symptoms resolved in the emergency department. With known coronary artery disease, she was admitted for serial troponins and stratification. Patient underwent stress i maging on 04/04 which was positive; therefore, patient was kept overnight to obtain rest images. Res t images on the day of disposition confirm the presence of an old infarction with no inducible ischem ia. Patient is treated with appropriate medical management for her known coronary artery disease on Plavix, statin, lisinopril and carvedilol. She is being discharged for outpatient followup with her primary clothespin machine operator, Dr. Guerrero. 2. Coronary artery disease. As above, we have continued her appropriate medical regimen for coronar y disease. Patient will follow with Dr. Guerrero in the next 2-3 weeks for post disposition followup. MEDICATIONS: At the time of disposition, please reference the med rec printed on 04/05/2017. Of not e, no changes were made to her medication regimen. FOLLOWUP APPOINTMENTS: Include with Dr. Guerrero in the next 2-3 weeks for post disposition followup and ongoing titration of her cardiac regimen. I spent greater than 30 minutes in the planning and coordination of this discharge. /[id number]/MODL
--- NOTE | 2017-04-06 15:45 | ASDISCHSUM ---
Discharge Information Plan Status:Home with No Needs Medically Cleared to Leave:04/04/2017 Discharge Date:04/05/2017 05:53 PM CM D/C Disposition:Home, Routine, Self-Care ADT D/C Disposition:Home, Routine, Self-Care Projected Discharge Date:04/05/2017 12:00 AM Transportation at D/C:Family Discharge Delay Reason: Follow-Up Date:04/05/2017 12:00 AM Discharge Slot: Final Diagnosis:CP Placement Information Patient Contact Information Contact Name:IVORYSABAS Relationship:Son Address: City:[place] Alternate Phone: [facility]/Zip Code:[place] Email: Financial Information Financial Class: Primary Plan Desc:MEDICARE INPATIENT Primary Plan Number:[id number] [facility] Secondary Plan Number:[id number] Assessment Information Case Management Discharge Plan Note Case Management Discharge Discharge Order Complete? Answers: Yes Patient to Obtain Answers: via Family Medications Transportation Arranged Answers: Family/Friends Transport will Pick (Date 04/05/2017 12:00 AM & Time) Family Notified Answers: Yes Notes: Son to transport Discharge Comments Notes: *6 yr old female admitted for CP. She has a hx of CAD with a stent to LAD, HTN, HLD, GERD, IBS-constipation, Glaucoma, dementia. She lives at [facility]. Patient had cardiac work-up incl stress test (-). To discharge home no discharge needs. Date Signed: 04/05/2017 04:53 PM Electronically Signed By:Radha Cruz LCSW Intervention Information
== END 2017-04-05 17:53 | disposition home or self-care (01) | DRG 313 ==
LOC: EDUNIT# → F2N 04-04 11:07 → OBSVTOIN 04-04 15:02 → F2N 04-04 15:24
PROVIDERS: ADMIT Family Medicine; ATTEND Hospitalist
DX: R07.9 Chest pain, unspecified (principal); I25.10 Atherosclerotic heart disease of native coronary artery without angina pectoris; I10 Essential (primary) hypertension; E78.5 Hyperlipidemia, unspecified; K21.9 Gastro-esophageal reflux disease without esophagitis; H40.9 Unspecified glaucoma; F03.90 Unspecified dementia, unspecified severity, without behavioral disturbance, psychotic disturbance, mood disturbance, and anxiety; I25.2 Old myocardial infarction; Z96.611 Presence of right artificial shoulder joint; Z95.5 Presence of coronary angioplasty implant and graft; Z85.3 Personal history of malignant neoplasm of breast
CPT/HCPCS: A9500

== ENCOUNTER → 2017-05-10 | Outpatient (CLI) | payer OTHER, BC | LOC: BMCIMAGING 14:58 | PROVIDERS: ATTEND Family Medicine | DX: R05 Cough (principal); Z96.612 Presence of left artificial shoulder joint ==

== ENCOUNTER → 2017-05-24 | Outpatient (CLI) | payer OTHER, BC | LOC: BMCIMAGING 10:50 | PROVIDERS: ATTEND Physician Assistant | DX: Z47.1 Aftercare following joint replacement surgery (principal); Z96.612 Presence of left artificial shoulder joint ==

== ENCOUNTER → 2017-06-18 | Outpatient (CLI) | payer OTHER, BC ==
[~2017-06-18] MED LIST changes: +GADOBUTROL 10 ML VIAL IVP ONE; -ROPIVACAINE 0.2% 80 MG, EPINEPHrine 0.2 MG in BAG 0 ML IU ONE
== END ==
LOC: FIMAGING 07:54
PROVIDERS: ATTEND Psychiatry & Neurology Neurology
DX: R93.0 Abnormal findings on diagnostic imaging of skull and head, not elsewhere classified (principal); G31.9 Degenerative disease of nervous system, unspecified; M85.2 Hyperostosis of skull
CPT/HCPCS: 70553; A9585

== ENCOUNTER → 2017-07-08 | Outpatient (CLI) | payer OTHER, BC | LOC: BMCIMAGING 09:01 | PROVIDERS: ATTEND Internal Medicine | DX: Z12.31 Encounter for screening mammogram for malignant neoplasm of breast (principal); Z85.3 Personal history of malignant neoplasm of breast ==

== ENCOUNTER → 2017-12-06 | Outpatient (CLI) | payer OTHER, BC | LOC: BMCIMAGING 10:52 | PROVIDERS: ATTEND Orthopaedic Surgery | DX: Z12.31 Encounter for screening mammogram for malignant neoplasm of breast (principal); Z85.3 Personal history of malignant neoplasm of breast ==

== ENCOUNTER 2017-12-29 17:25 | Emergency (ER) | payer OTHER, BC ==
--- NOTE | 2017-12-29 17:48 | EDPHY ---
H & P Time Seen by Provider: 12/29/17 17:44 HPI/ROS: CHIEF COMPLAINT: Vomiting and diarrhea for 3 days HISTORY OF PRESENT ILLNESS: Patient is had vomiting and diarrhea for the past 3 days. Associated with body aches and feeling thirsty, she tried to eat breakfast this morning she felt a little bit better and she kept vomiting her last episode was at 3:00 p.m.. Associated with some abdominal soreness, fatigue , worse with eating. No blood or coffee grounds in the emesis, no melena. Symptoms are severe. REVIEW OF SYSTEMS: Eye: no change in vision ENT: no sore throat Cardiac: no chest pain or syncope Pulmonary: no cough or SOB Abdomen: HPI Musculoskeletal: Myalgias Skin: no rash Neuro: no headache Constitutional: no fever : no urinary symptoms A comprehensive 10 point review of systems is otherwise negative aside from elements mentioned in the history of present illness. PAST MEDICAL HISTORY: Includes angioplasty with stenting, breast cancer lumpectomy, colitis, constipation, appendectomy Social history: Lives at [facility], here with her son General Appearance: Alert and conversant, cooperative. Eyes: No scleral icterus. ENT, Mouth: slightly dry mucous membranes. Respiratory: Normal respiratory effort, breath sounds equal, lungs are clear to auscultation. Cardiovascular: Regular rate and rhythm. Gastrointestinal: Abdomen is soft and non tender. Neurological: Alert, face symmetric, normal motor and sensory in extremities. Skin: Warm and dry, no rashes. Musculoskeletal: No peripheral edema. Psychiatric: Not agitated. Emergency Department course/MDM: Patient presents with severe vomiting and diarrhea, benign abdominal exam, dehydrated on examination. Plan for antiemetics and IV fluids, check electrolytes and laboratory. 1843: Results discussed, will treat with IV cephalosporin given severe skin rash only reaction to penicillins, only vancomycin documented previously in [place] 1951: States she feels better, no vomiting, has been up to the bathroom and feels stable on her feet. She would like to go home if possible and I think that is reasonable. Son in agreement. Not hypotensive or tachycardic, electrolytes and creatinine are normal. Antiemetics and oral antibiotic for UTI. Did not have any adverse or allergic reaction to cephalosporin. Smoking Status: Former smoker Constitutional: Initial Vital Signs Temperature (C) 36.4 C 12/29/17 17:39 Heart Rate 57 L 12/29/17 17:39 Respiratory Rate 16 12/29/17 17:39 Blood Pressure 160/72 H 12/29/17 17:39 O2 Sat (%) 95 12/29/17 17:39 O2 Delivery Mode Room Air Allergies/Adverse Reactions: amoxicillin [Amoxicillin] Allergy (Unknown, Verified 11/03/16 10:54) Rash diclofenac sodium [From Voltaren] Allergy (Unknown, Verified 11/03/16 10:54) Rash lactose Allergy (Verified 04/03/17 23:56) Opioids - Morphine Analogues Allergy (Verified 11/03/16 10:54) Itching Penicillins Allergy (Verified 11/03/16 10:54) Rash sunscreen lotion Allergy (Unknown, Uncoded 07/23/14 11:38) Rash Home Medications: Medication Instructions Recorded Atorvastatin Calcium [Lipitor 40 40 mg PO DAILY@1900 07/16/14 mg (*)] Azelastine HCl [Astepro] 1 spray EACHNARE DAILY PRN 07/16/14 Lisinopril [Zestril 40 mg (*)] 40 mg PO BID 07/16/14 C/E/Zn/Cu/OM3/DHA/EPA/LUT/ZEAX 1 each PO BID 10/30/16 [Preservision Areds 2 Softgel] Carvedilol [Coreg (*)] 25 mg PO BIDMEAL 10/30/16 Donepezil HCl [Aricept 5 MG (*)] 10 mg PO DAILY 10/30/16 Multivitamins [Multivitamin (*)] 1 each PO DAILY 10/30/16 Pantoprazole Sodium [Protonix 40mg 40 mg PO DAILY 10/30/16 (*)] Timolol 0.5% [TIMOPTIC 0.5% (*)] 1 drops EACHEYE DAILY 10/30/16 Clopidogrel Bisulfate [Plavix (*)] 75 mg PO DAILY 04/04/17 Cephalexin [Keflex] 500 mg PO QID #28 cap 12/29/17 Medical Decision Making Differential Diagnosis: Differential diagnosis considered for nausea and vomiting including but not limited to urinary tract infection, gastroenteritis, gastritis, appendicitis, and medication side effect. - Data Points Laboratory Results: Laboratory Results 12/29/17 18:00 12/29/17 18:00 12/29/17 12/29/17 12/29/17 18:00 18:00 17:54 WBC 9.51 10^3/uL H 10^3/uL (3.80-9.50) RBC 4.82 10^6/uL 10^6/uL (4.18-5.33) Hgb 15.1 g/dL g/dL (12.6-16.3) Hct 42.9 % % (38.0-47.0) MCV 89.0 fL fL (81.5-99.8) MCH 31.3 pg pg (27.9-34.1) MCHC 35.2 g/dL g/dL (32.4-36.7) RDW 12.1 % % (11.5-15.2) Plt Count 156 10^3/uL 10^3/uL (150-400) MPV 11.7 fL fL (8.7-11.7) Neut % (Auto) 75.3 % H % (39.3-74.2) Lymph % (Auto) 13.6 % L % (15.0-45.0) [place] % (Auto) 9.4 % % (4.5-13.0) Eos % (Auto) 1.1 % % (0.6-7.6) Baso % (Auto) 0.3 % % (0.3-1.7) Nucleat RBC Rel Count 0.0 % % (0.0-0.2) Absolute Neuts (auto) 7.17 10^3/uL H 10^3/uL (1.70-6.50) Absolute Lymphs (auto) 1.29 10^3/uL 10^3/uL (1.00-3.00) Absolute Monos (auto) 0.89 10^3/uL H 10^3/uL (0.30-0.80) Absolute Eos (auto) 0.10 10^3/uL 10^3/uL (0.03-0.40) Absolute Basos (auto) 0.03 10^3/uL 10^3/uL (0.02-0.10) Absolute Nucleated RBC 0.00 10^3/uL 10^3/uL (0-0.01) Immature Gran % 0.3 % % (0.0-1.1) Immature Gran # 0.03 10^3/uL 10^3/uL (0.00-0.10) Sodium 137 mEq/L mEq/L (135-145) Potassium 4.4 mEq/L mEq/L (3.3-5.0) Chloride 101 mEq/L mEq/L (97-110) Carbon Dioxide 26 mEq/l mEq/l (22-31) Anion Gap 10 mEq/L mEq/L (8-16) BUN 14 mg/dL mg/dL (7-23) Creatinine 0.8 mg/dL mg/dL (0.6-1.0) Estimated GFR > 60 Glucose 115 mg/dL H mg/dL (70-100) Calcium 10.5 mg/dL H mg/dL (8.5-10.4) Urine Color YELLOW Urine Appearance CLEAR Urine pH 5.0 (5.0-7.5) Ur Specific [place] 1.012 (1.002-1.030) Urine Protein NEGATIVE (NEGATIVE) Urine Ketones NEGATIVE (NEGATIVE) Urine Blood NEGATIVE (NEGATIVE) Urine Nitrate NEGATIVE (NEGATIVE) Urine Bilirubin NEGATIVE (NEGATIVE) Urine Urobilinogen NEGATIVE EU EU (0.2-1.0) Ur Leukocyte Esterase 2+ H (NEGATIVE) Urine RBC NONE SEEN /hpf /hpf (0-3) Urine WBC 15-25 /hpf H /hpf (0-3) Ur Epithelial Cells TRACE /lpf /lpf (NONE-1+) Urine Bacteria TRACE /hpf H /hpf (NONE SEEN) Urine Mucus TRACE /lpf /lpf (NONE-1+) Urine Glucose NEGATIVE (NEGATIVE) Medications Given: Discontinued Medications Sodium Chloride (Ns) 1,000 mls @ 0 mls/hr IV EDNOW ONE; Wide Open PRN Reason: Protocol Stop: 12/29/17 17:55 Last Admin: 12/29/17 18:02 Dose: 1,000 mls Sodium Chloride (Ns) 1,000 mls @ 0 mls/hr IV EDNOW ONE; Wide Open PRN Reason: Protocol Stop: 12/29/17 18:45 Last Admin: 12/29/17 18:55 Dose: 1,000 mls Ceftriaxone Sodium/Dextrose (Rocephin 1 Gm (Premix)) 50 mls @ 100 mls/hr IV EDNOW ONE PRN Reason: Protocol Stop: 12/29/17 19:15 Last Admin: 12/29/17 19:18 Dose: 50 mls Promethazine HCl (Phenergan) 12.5 mg IVP EDNOW ONE Stop: 12/29/17 17:55 Last Admin: 12/29/17 18:03 Dose: 12.5 mg Promethazine HCl (Phenergan 25 Mg Prepack #4) 1 btl TAKEHOME EDNOW ONE Stop: 12/29/17 19:28 Last Admin: 12/29/17 19:55 Dose: 1 btl Departure - Departure Disposition: Home, Routine, Self-Care Clinical Impression: Vomiting and diarrhea, Dehydration Urinary tract infection Qualifiers: Urinary tract infection type: site unspecified Hematuria presence: without hematuria Qualified Code(s): N39.0 - Urinary tract infection, site not specified Condition: Good Instructions: Promethazine (By mouth), Urinary Tract Infection in Women (ED), Gastroenteritis (ED) Referrals: Lana Griggs MD [[facility] [place] Primary Care Provider] - As per Instructions Prescriptions: Cephalexin [Keflex] 500 mg PO QID #28 cap
[2017-12-29] MEDS ORDERED: NS 1,000 ML IV ONE ×2 (17:54→18:44)
[2017-12-29] MEDS ORDERED: PROMETHAZINE HCL 25 MG/ML INJ IVP ONE (17:54)
[2017-12-29 18:14] LABS: PLATELET COUNT 156 10^3/uL (150-400)
[2017-12-29] MEDS ORDERED: PROMETHAZINE 25 MG PREPACK #4 BTL TAKEHOME ONE (19:27)
[2017-12-29 19:28] VITALS: BP 161/73
== END 2017-12-29 20:03 | disposition home or self-care (01) ==
DX: N39.0 Urinary tract infection, site not specified (principal); R11.10 Vomiting, unspecified; R19.7 Diarrhea, unspecified; E86.0 Dehydration
CPT/HCPCS: 96361; 96365; 96375; 99284; J0696; J2550

== ENCOUNTER 2018-04-08 23:14 | Inpatient (IN) | payer OTHER, BC ==
[2018-04-08] MEDS ORDERED: NS 1,000 ML IV ONE (23:21)
--- NOTE | 2018-04-08 23:27 | EDPHY ---
H & P Time Seen by Provider: 04/08/18 23:26 HPI/ROS: Chief Complaint: Nausea, vomiting, diarrhea HPI: 87-year-old woman presenting from independent living facility with nausea vomiting and diarrhea. Patient began having diarrhea approximately 6 hr ago. Has had multiple loose stools. Has also had some nausea vomiting. Last able to eat around noon. She has not been able to keep any fluids down. No blood or dark black stools. No fevers or chills. Has had some occasional abdominal cramping. Currently without pain. She did have some nausea in the ambulance and give her 4 mg of Zofran. No fevers or chills. Multiple other residence of the facility have had similar symptoms. ROS: 10 systems were reviewed and were negative except those elements noted in the HPI. Social History: No smoking, no alcohol, no recreational drug use Family History: non-contributory Physical Exam: Gen: Awake, Alert, No Distress HEENT: Nose: no rhinorrhea Eyes: PERRLA, EOMI Mouth: Dry mucosa Neck: Supple, no JVD Chest: nontender, lungs clear to auscultation Heart: S1, S2 normal, no murmur Abd: Soft, non-tender, no guarding Back: no CVA tenderness, no midline tenderness Ext: no edema, non-tender Skin: no rash Neuro: CN II-XII intact, Sensation grossly intact, Strength 5/5 in bilateral upper and lower extremities - Medical/Surgical History Hx Asthma: No Hx Chronic Respiratory Disease: No Hx Diabetes: No Hx Cardiac Disease: No Hx Renal Disease: No Hx Cirrhosis: No Hx Alcoholism: No Hx HIV/AIDS: No Hx Splenectomy or Spleen Trauma: No Other PMH: rt ka. cataract. 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 angioplasty, 2 stents. lumpectomy for brst ca right// colitis and chronic constipation: BSO a few years ago for cyst. appy. tonsils. hand and foot surgey - Social History Smoking Status: Former smoker Constitutional: Initial Vital Signs Temperature (C) 36.6 C 04/08/18 23:15 Heart Rate 62 04/08/18 23:15 Respiratory Rate 18 04/08/18 23:15 Blood Pressure 148/69 H 04/08/18 23:15 O2 Sat (%) 93 04/08/18 23:15 O2 Delivery Mode Room Air O2 (L/minute) 2 Allergies/Adverse Reactions: amoxicillin [Amoxicillin] Allergy (Unknown, Verified 11/03/16 10:54) Rash diclofenac sodium [From Voltaren] Allergy (Unknown, Verified 11/03/16 10:54) Rash lactose Allergy (Verified 04/03/17 23:56) Opioids - Morphine Analogues Allergy (Verified 11/03/16 10:54) Itching Penicillins Allergy (Verified 11/03/16 10:54) Rash sunscreen lotion Allergy (Unknown, Uncoded 07/23/14 11:38) Rash Home Medications: Medication Instructions Recorded Atorvastatin Calcium [Lipitor 40 40 mg PO DAILY@1900 07/16/14 mg (*)] Azelastine HCl [Astepro] 1 spray EACHNARE DAILY PRN 07/16/14 Lisinopril [Zestril 40 mg (*)] 40 mg PO BID 07/16/14 C/E/Zn/Cu/OM3/DHA/EPA/LUT/ZEAX 1 each PO BID 10/30/16 [Preservision Areds 2 Softgel] Carvedilol [Coreg (*)] 25 mg PO BIDMEAL 10/30/16 Donepezil HCl [Aricept 5 MG (*)] 10 mg PO DAILY 10/30/16 Multivitamins [Multivitamin (*)] 1 each PO DAILY 10/30/16 Pantoprazole Sodium [Protonix 40mg 40 mg PO DAILY 10/30/16 (*)] Timolol 0.5% [TIMOPTIC 0.5% (*)] 1 drops EACHEYE DAILY 10/30/16 Clopidogrel Bisulfate [Plavix (*)] 75 mg PO DAILY 04/04/17 Cephalexin [Keflex] 500 mg PO QID #28 cap 12/29/17 Medical Decision Making ED Course/Re-evaluation: 87-year-old with vomiting and diarrhea. Likely consistent with norovirus. I have sent GI pathogen panel. Patient is dehydrated. Will admit to the hospitalist service for continued hydration and care. - Data Points Laboratory Results: Laboratory Results 04/08/18 23:30 04/08/18 23:30 04/08/18 04/08/18 23:30 23:30 WBC 11.61 10^3/uL H 10^3/uL (3.80-9.50) RBC 4.67 10^6/uL 10^6/uL (4.18-5.33) Hgb 14.8 g/dL g/dL (12.6-16.3) Hct 42.2 % % (38.0-47.0) MCV 90.4 fL fL (81.5-99.8) MCH 31.7 pg pg (27.9-34.1) MCHC 35.1 g/dL g/dL (32.4-36.7) RDW 12.9 % % (11.5-15.2) Plt Count 142 10^3/uL L 10^3/uL (150-400) MPV 12.0 fL H fL (8.7-11.7) Neut % (Auto) 86.2 % H % (39.3-74.2) Lymph % (Auto) 7.4 % L % (15.0-45.0) [place] % (Auto) 5.5 % % (4.5-13.0) Eos % (Auto) 0.3 % L % (0.6-7.6) Baso % (Auto) 0.3 % % (0.3-1.7) Nucleat RBC Rel Count 0.0 % % (0.0-0.2) Absolute Neuts (auto) 10.00 10^3/uL H 10^3/uL (1.70-6.50) Absolute Lymphs (auto) 0.86 10^3/uL L 10^3/uL (1.00-3.00) Absolute Monos (auto) 0.64 10^3/uL 10^3/uL (0.30-0.80) Absolute Eos (auto) 0.04 10^3/uL 10^3/uL (0.03-0.40) Absolute Basos (auto) 0.03 10^3/uL 10^3/uL (0.02-0.10) Absolute Nucleated RBC 0.00 10^3/uL 10^3/uL (0-0.01) Immature Gran % 0.3 % % (0.0-1.1) Immature Gran # 0.04 10^3/uL 10^3/uL (0.00-0.10) Sodium 140 mEq/L mEq/L (135-145) Potassium 4.8 mEq/L mEq/L (3.5-5.2) Chloride 105 mEq/L mEq/L (97-110) Carbon Dioxide 24 mEq/l mEq/l (22-31) Anion Gap 11 mEq/L mEq/L (6-14) BUN 21 mg/dL mg/dL (7-23) Creatinine 1.0 mg/dL mg/dL (0.6-1.0) Estimated GFR 53 Glucose 135 mg/dL H mg/dL (70-100) Calcium 10.5 mg/dL H mg/dL (8.5-10.4) Medications Given: Discontinued Medications Sodium Chloride (Ns) 1,000 mls @ 0 mls/hr IV ONCE ONE; Wide Open PRN Reason: Protocol Stop: 04/08/18 23:22 Last Admin: 04/08/18 23:15 Dose: 1,000 mls Departure - Departure Disposition: [facility] Inpatient Acute Clinical Impression: Gastroenteritis Condition: Fair
[2018-04-08 23:40] LABS: PLATELET COUNT 142 10^3/uL (150-400)
[2018-04-09] MEDS ORDERED: ONDANSETRON 4 MG/2 ML VIAL IVP ONE (00:20)
[2018-04-09] MEDS ORDERED: PROMETHAZINE HCL 25 MG/ML INJ IVP PRN (01:23)
[2018-04-09] MEDS ORDERED: ONDANSETRON 4 MG/2 ML VIAL IVP PRN (01:23)
[2018-04-09] MEDS ORDERED: ACETAMINOPHEN 325 MG TAB PO PRN (01:23)
[2018-04-09] MEDS ORDERED: ONDANSETRON DISINTEGRATING 4 MG TAB PO PRN (01:23)
[2018-04-09] MEDS: NS 1,000 ML IV SCH ×4 (02:10→20:45)
--- NOTE | 2018-04-09 02:49 | PDGENHP ---
History and Physical - Chief Complaint Vomiting, diarrhea - History of Present Illness 87 yo F w/ hx of CAD and HTN presents with nausea, vomiting, and diarrhea. The patient was in usual state of health until this afternoon when she developed acute onset of diarrhea. She tells me she had a loose bowel movement every 15 minutes for several hours until she came in to the ED. He has had some nausea and vomiting as well, but diarrhea is her predominant symptoms. She denies blood in vomit or stool. She also denies fever, chills, and URI symptoms. She tells many people have been sick at her living facility. Her laboratory work-up and abdominal exam are reassuring. Case discussed with ED physician Dr. Deutsch; records reviewed and summarized above. History Information - Allergies/Home Medication List Allergies/Adverse Reactions: amoxicillin [Amoxicillin] Allergy (Unknown, Verified 11/03/16 10:54) Rash diclofenac sodium [From Voltaren] Allergy (Unknown, Verified 11/03/16 10:54) Rash lactose Allergy (Verified 04/03/17 23:56) Opioids - Morphine Analogues Allergy (Verified 11/03/16 10:54) Itching Penicillins Allergy (Verified 11/03/16 10:54) Rash sunscreen lotion Allergy (Unknown, Uncoded 07/23/14 11:38) Rash Home Medications: Atorvastatin Calcium [Lipitor 40 mg (*)] 40 mg PO DAILY@1900 07/16/14 [Last Taken 04/03/17 19:00] Azelastine HCl [Astepro] 1 spray EACHNARE DAILY PRN 07/16/14 [Last Taken ] Lisinopril [Zestril 40 mg (*)] 40 mg PO BID 07/16/14 [Last Taken 04/03/17 21:00] C/E/Zn/Cu/OM3/DHA/EPA/LUT/ZEAX [Preservision Areds 2 Softgel] 1 each PO BID 02/05 [Last Taken 04/03/17 21:00] Carvedilol [Coreg (*)] 25 mg PO BIDMEAL 10/30/16 [Last Taken 04/03/17 21:00] Donepezil HCl [Aricept 5 MG (*)] 10 mg PO DAILY 10/30/16 [Last Taken 04/03/17 08 :00] Multivitamins [Multivitamin (*)] 1 each PO DAILY 10/30/16 [Last Taken 04/03/17 08:00] Pantoprazole Sodium [Protonix 40mg (*)] 40 mg PO DAILY 10/30/16 [Last Taken 08:00] Timolol 0.5% [TIMOPTIC 0.5% (*)] 1 drops EACHEYE DAILY 10/30/16 [Last Taken 08:00] Clopidogrel Bisulfate [Plavix (*)] 75 mg PO DAILY 04/04/17 [Last Taken 04/03/17 08:00] I have personally reviewed and updated: family history, medical history - Past Medical History coronary artery disease, hypertension - Surgical History Reports: appendectomy Additional surgical history: Lumpectomy. L shoulder surgery - Family History Positive for: CAD, hypertension Additional family history: Did not know her father - Social History Smoking Status: Former smoker Review of Systems Review of Systems: ROS: 10pt was reviewed & negative except for what was stated in HPI & below Physical Exam Physical Exam: Temp Pulse Resp BP Pulse Ox 36.5 C 62 18 149/77 H 95 04/09/18 01:48 04/09/18 01:48 04/09/18 01:48 04/09/18 01:48 04/09/18 01:48 Constitutional: appears nourished, uncomfortable Eyes: PERRL, EOMI Ears, Nose, Mouth, Throat: moist mucous membranes, no oral mucosal ulcers Cardiovascular: regular rate and rhythym, systolic murmur Respiratory: no respiratory distress, clear to auscultation Gastrointestinal: normoactive bowel sounds, tenderness (Mild, diffuse), No guarding, No rebound, No distension Skin: warm, normal color Musculoskeletal: full muscle strength, no muscle tenderness Neurologic: AAOx3, CN II-XII Intact Psychiatric: interacting appropriately, not anxious Lab Data & Imaging Review 04/08/18 23:30 04/08/18 23:30 WBC 11.61 10^3/uL (3.80-9.50) H 04/08/18 23:30 RBC 4.67 10^6/uL (4.18-5.33) 04/08/18 23:30 Hgb 14.8 g/dL (12.6-16.3) 04/08/18 23:30 Hct 42.2 % (38.0-47.0) 04/08/18 23:30 MCV 90.4 fL (81.5-99.8) 04/08/18 23:30 MCH 31.7 pg (27.9-34.1) 04/08/18 23:30 MCHC 35.1 g/dL (32.4-36.7) 04/08/18 23: RDW 12.9 % (11.5-15.2) 04/08/18 23:30 Plt Count 142 10^3/uL (150-400) L 04/08/18 23:30 MPV 12.0 fL (8.7-11.7) H 04/08/18 23:30 Neut % (Auto) 86.2 % (39.3-74.2) H 04/08/18 23:30 Lymph % (Auto) 7.4 % (15.0-45.0) L 04/08/18 23: [place] % (Auto) 5.5 % (4.5-13.0) 04/08/18 23:30 Eos % (Auto) 0.3 % (0.6-7.6) L 04/08/18 23:30 Baso % (Auto) 0.3 % (0.3-1.7) 04/08/18: Nucleat RBC Rel Count 0.0 % (0.0-0.2) 04/08/18 23:30 Absolute Neuts (auto) 10.00 10^3/uL (1.70-6.50) H 04/08/18 23:30 Absolute Lymphs (auto) 0.86 10^3/uL (1.00-3.00) L 04/08/18 23:30 Absolute Monos (auto) 0.64 10^3/uL (0.30-0.80) 04/08/18 23:30 Absolute Eos (auto) 0.04 10^3/uL (0.03-0.40) 04/08/18 23:30 Absolute Basos (auto) 0.03 10^3/uL (0.02-0.10) 04/08/18 23: Absolute Nucleated RBC 0.00 10^3/uL (0-0.01) 04/08/18 23:30 Immature Gran % 0.3 % (0.0-1.1) 04/08/18 23:30 Immature Gran # 0.04 10^3/uL (0.00-0.10) 04/08/18 23:30 Sodium 140 mEq/L (135-145) 04/08/18 23:30 Potassium 4.8 mEq/L (3.5-5.2) 04/08/18 23:30 Chloride 105 mEq/L (97-110) 04/08/18 23:30 Carbon Dioxide 24 mEq/l (22-31) 04/08/18 23:30 Anion Gap 11 mEq/L (6-14) 04/08/18 23:30 BUN 21 mg/dL (7-23) 04/08/18 23:30 Creatinine 1.0 mg/dL (0.6-1.0) 04/08/18 23:30 Estimated GFR 53 04/08/18 23:30 Glucose 135 mg/dL (70-100) H 04/08/18 23:30 Calcium 10.5 mg/dL (8.5-10.4) H 04/08/18 23:30 Assessment & Plan Assessment: 87 yo F w/ CAD and HTN presents with gastroenteritis. Plan: 1. Nausea, vomiting, diarrhea - Most likely viral gastroenteritis noting acute onset and profuse diarrhea. Her laboratory work-up and abdominal exam are reassuring at this time. - Admit for observation - GI PCR ordered - mIVF, anti-emetics PRN - Serial abdominal exams - May need imaging if worsening 2. Hx CAD - With history of 2 stents in the past; she denies any acute symptoms. - Continue home medications pending reconciliation 3. HTN - Continue home medications pending reconciliation Diet - Clears, mIVF, ADAT Code - Full Ppx - LMWH, low dose Dispo - Admit under observation status
[2018-04-09] MEDS ORDERED: LOPERAMIDE HCL 2 MG CAP PO ONE (03:29)
[2018-04-09 05:45] LABS: PLATELET COUNT 138 10^3/uL (150-400)
[2018-04-09] MEDS ORDERED: ENOXAPARIN 30 MG/0.3 ML SYR SC SCH (09:00)
[2018-04-09] MEDS: VANCOMYCIN 125 MG/2.5 ML UDL PO SCH ×4 (09:34→20:45)
[2018-04-09] MEDS ORDERED: MBX SOLN 30 ML BOTTLE PO PRN (10:17)
--- NOTE | 2018-04-09 10:19 | HOSPPROG ---
Hospitalist Progress Note Assessment/Plan: 1. Nausea, vomiting, diarrhea: +c diff, + norovirus - IVF, anti-emetics PRN -adv diet as able -on oral vanco 2. Hx CAD - With history of 2 stents in the past - Continue home medications 3. HTN - Continue home medications PCP Dr Griggs Full Code VTE prophy:lovenox Dispo: possible maybe able to discharge tomorrow if tolerating PO, and clinically improving Subjective: Feels weak. No V, able to tolerate some liquids. + diarrhea. No CP/ SOB. + mild abd pain. Feels better than yesterday Objective: Vital Signs Temp Pulse Resp BP Pulse Ox 98.2 F 62 16 134/61 H 96 04/09/18 07:28 04/09/18 07:28 04/09/18 07:28 04/09/18 07:28 04/09/18 07:28 Microbiology 04/09/18 03:22 Gastrointestinal Tract Panel (PCR) - Final Stool Norovirus Gi/Gii Clostridium Difficile Detected Laboratory Results 04/09/18 05:11 04/09/18 05:11 04/07/18 04/08/18 04/09/18 11:59 11:59 11:59 Intake Total 1250 Balance 1250 - Time Spent With Patient Time Spent with Patient: greater than 35 minutes Time Spent with Patient: Greater than 35 minutes spent on this patients care, greater than 50% of time spent counseling, educating, and coordinating care regarding the above mentioned plan. - Physical Exam Constitutional: no apparent distress, appears nourished, not in pain Eyes: anicteric sclera, EOMI Ears, Nose, Mouth, Throat: moist mucous membranes, hearing normal Cardiovascular: regular rate and rhythym, no murmur, rub, or gallop Respiratory: no respiratory distress, no rales or rhonchi, clear to auscultation Gastrointestinal: normoactive bowel sounds, tenderness (mild, throughout. no rebound or guarding) Skin: warm Psychiatric: interacting appropriately, not anxious ICD10 Worksheet Patient Problems: Problems Problem Status Onset Gastroenteritis Acute Chest pain Acute Ovarian cyst Acute
--- NOTE | 2018-04-09 16:47 | ASMTCMCOM ---
CM Note CM Note Notes: Pt admitted with n/v/diahrrea. She lives at , will dc independent when medically stable, CM available for any changes. DC Plan: Independent Date Signed: 04/09/2018 04:46 PM Electronically Signed By:Carey Delgado RN
[2018-04-09] MEDS: CARVEDILOL 25 MG TAB PO SCH (18:56)
[2018-04-09] MEDS: PRESERVISION AREDS2 FORMULA EYE VIT 1 EACH PO SCH (20:45)
[2018-04-09] MEDS: LISINOPRIL 40 MG TAB PO SCH (20:45)
[2018-04-10] MEDS: VANCOMYCIN 125 MG/2.5 ML UDL PO SCH ×4 (05:28→20:08)
[2018-04-10] MEDS: ENOXAPARIN 40 MG/0.4 ML SYR SC SCH (09:23)
[2018-04-10] MEDS: PRESERVISION AREDS2 FORMULA EYE VIT 1 EACH PO SCH ×2 (09:24→20:08)
[2018-04-10] MEDS: MULTIVITAMINS 1 EACH TAB PO SCH (09:24)
[2018-04-10] MEDS: CLOPIDOGREL BISULFATE 75 MG TAB PO SCH (09:24)
[2018-04-10] MEDS: LISINOPRIL 40 MG TAB PO SCH ×2 (09:24→20:07)
[2018-04-10] MEDS: CARVEDILOL 25 MG TAB PO SCH ×2 (09:24→17:35)
[2018-04-10] MEDS: DONEPEZIL HCL 5 MG TAB PO SCH (09:24)
[2018-04-10] MEDS: TIMOLOL 0.5% 15 ML OPHT.BTL EACHEYE SCH (11:04)
[2018-04-10] MEDS: NS 1,000 ML IV SCH (11:06)
--- NOTE | 2018-04-10 23:24 | HOSPPROG ---
Hospitalist Progress Note Assessment/Plan: 1. Nausea, vomiting, diarrhea: +c diff, + norovirus - stop IVF -encouraged PO as tolerated -on oral vanco 2. Hx CAD - With history of 2 stents in the past - Continue home medications 3. HTN - on home medications except not amlodipine -some elev BPs, restart amlodipine PCP Dr Griggs Full Code VTE prophy:lovenox Dispo: maybe able to discharge tomorrow if tolerating PO, and clinically improving Subjective: Tired today, taking clears. Having several loose stools. No CP/SOB/n /v. Was supposed to move this week to a diff [facility]. Son helping her, has changed to next week. Objective: Vital Signs Temp Pulse Resp BP Pulse Ox 97.7 F 56 L 14 150/76 H 90 L 04/10/18 07:36 04/10/18 15:11 04/10/18 15:11 04/10/18 20:07 04/10/18 15:11 Laboratory Results 04/09/18 05:11 04/10/18 13:10 04/09/18 04/10/18 04/11/18 11:59 11:59 11:59 Intake Total 1250 3110 1000 Balance 1250 3110 1000 - Pending Discharge Pending Discharge Within 48 Hours: Yes Pending Discharge Date: 04/12/18 Pending Discharge Time: 11:00 - Physical Exam Constitutional: no apparent distress, appears nourished, not in pain Eyes: anicteric sclera, EOMI Ears, Nose, Mouth, Throat: moist mucous membranes, hearing normal Cardiovascular: regular rate and rhythym, no murmur, rub, or gallop Respiratory: no respiratory distress, no rales or rhonchi, clear to auscultation Gastrointestinal: normoactive bowel sounds, no palpable masses, tenderness ( mild throughout, no rebound/guarding) Skin: warm Psychiatric: interacting appropriately, not anxious, not encephalopathic ICD10 Worksheet Patient Problems: Problems Problem Status Onset Gastroenteritis Acute Chest pain Acute Ovarian cyst Acute
[2018-04-11] MEDS: VANCOMYCIN 125 MG/2.5 ML UDL PO SCH ×3 (05:02→15:44)
--- NOTE | 2018-04-11 06:11 | HOSPPROG ---
Hospitalist Progress Note Objective: Vital Signs Temp Pulse Resp BP Pulse Ox 36.9 C 54 L 16 127/55 H 91 L 04/10/18 23:40 04/10/18 23:40 04/10/18 23:40 04/10/18 23:40 04/10/18 23:40 Laboratory Results 04/11/18 04:42 04/11/18 04:42 04/09/18 04/10/18 04/11/18 06:59 06:59 06:59 Intake Total 1250 3110 1000 Balance 1250 3110 1000 ICD10 Worksheet Patient Problems: Problems Problem Status Onset Clostridium difficile colitis Acute Gastroenteritis Acute
[2018-04-11] MEDS: MULTIVITAMINS 1 EACH TAB PO SCH (08:26)
[2018-04-11] MEDS: PRESERVISION AREDS2 FORMULA EYE VIT 1 EACH PO SCH (08:26)
[2018-04-11] MEDS: DONEPEZIL HCL 5 MG TAB PO SCH (08:26)
[2018-04-11] MEDS: ENOXAPARIN 40 MG/0.4 ML SYR SC SCH (08:27)
[2018-04-11] MEDS: LISINOPRIL 40 MG TAB PO SCH (08:27)
[2018-04-11] MEDS: CLOPIDOGREL BISULFATE 75 MG TAB PO SCH (08:27)
[2018-04-11] MEDS: CARVEDILOL 25 MG TAB PO SCH (08:27)
[2018-04-11] MEDS: TIMOLOL 0.5% 15 ML OPHT.BTL EACHEYE SCH (08:28)
--- NOTE | 2018-04-11 08:59 | PDMN ---
Medical Necessity Medical necessity: Pt meets IP criteria as of 04/10/18 per MD and MCG M-170 ( Gastroenteritis); los > 2 mn for ongoing tx and management of C.diff and norovirus infections with nausea, vomiting and diarrhea.
[2018-04-11] MEDS ORDERED: amLODIPine BESYLATE 5 MG TAB PO SCH (09:00)
[2018-04-11 15:24] VITALS: BP 167/84
--- NOTE | 2018-04-11 15:29 | PDDCSUM ---
Discharge Summary Discharge Summary: DISCHARGE DIAGNOSES: * acute gastroenteritis with norovirus and C diff both present * acute dehydration * mild thrombocytopenia is likely due to norovirus * hypercalcemia at the time of admission is likely due to dehydration and has resolved simply with hydration * intermittent knee pain, chronic HOSPITAL COURSE SUMMARY: This patient presented to the hospital with nausea vomiting diarrhea and dehydration. She was found have both norovirus and C difficile in her stool. She was admitted to the hospital for ongoing symptoms and treated conservatively with IV fluids and oral vancomycin. She has responded quite well at this time she is eating without nausea and without nausea medicines, and her diarrhea has resolved. She has no abdominal pain, no fevers, no rashes , no other complications. She is stable for discharge to home. While she was here the patient did have an episode of abrupt onset of posterior left knee pain during walking. She says this occurs every 1-2 weeks chronically for at least several months. There is no history of injury or surgery. She has no prior known history of pathology or diagnosed abnormalities of the knee. On exam the knee showed no signs of acute deformities, effusions, inflammatory changes. She is able to walk easily with a walker which is what she does at home. Is felt that she can go home and use her walker at home but it is recommended that she see an orthopedist for diagnosis of that problem causing this trouble so that she can have either preventive or definitive therapies. PENDING TEST RESULTS: None MEDICATION CHANGES: None FOLLOW-UP PLAN: -with her primary care physician within 2 weeks -is recommended that she see an orthopedist about her knee episodes for diagnostic assessment Greater than 35 minutes bedside and care coordination time today
[2018-04-11] MEDS ORDERED: CALCIUM CARBONATE 500 MG CHEWABLE TAB PO PRN (15:32)
--- NOTE | 2018-04-11 15:37 | ASMTLACE ---
LACE Length of stay for Answers: 1 day current admission Acuity / Level of Answers: Yes Care: Did the patient have an inpatient admission? Comorbidities - select Answers: Coronary Artery Disease all that apply Other Notes: HTN # of Emergency department Answers: 1-2 visits in the last 6 months Score: 8 Date Signed: 04/11/2018 03:36 PM Electronically Signed By:Hannah Pinon RN
--- NOTE | 2018-04-11 15:38 | ASMTDCNOTE ---
Case Management Discharge Discharge Order Complete? Answers: Yes Patient to Obtain Answers: Independently Medications Transportation Arranged Answers: Family/Friends Discharge Comments Notes: Patient discharged home to [facility]. Her son Coy will transport. No CM needs Date Signed: 04/11/2018 03:37 PM Electronically Signed By:Hannah Pinon RN
== END 2018-04-11 17:49 | disposition home or self-care (01) | DRG 373 ==
LOC: EDUNIT# → F3E 04-09 01:39 → OBSVTOIN 04-10 18:15
PROVIDERS: ADMIT Student in an Organized Health Care Education/Training Program; ATTEND Student in an Organized Health Care Education/Training Program
DX: A04.72 Enterocolitis due to Clostridium difficile, not specified as recurrent (principal); E86.0 Dehydration; A08.39 Other viral enteritis; D69.59 Other secondary thrombocytopenia; G89.29 Other chronic pain; M25.562 Pain in left knee; I25.10 Atherosclerotic heart disease of native coronary artery without angina pectoris; I10 Essential (primary) hypertension; Z88.0 Allergy status to penicillin; Z95.5 Presence of coronary angioplasty implant and graft
CPT/HCPCS: 97116-GP; 97161-GP; G0378; J1650; J2405; J2550

== ENCOUNTER 2018-09-03 09:28 | Observation (INO) | payer OTHER, BC | END 2018-09-04 14:21 | disposition home or self-care (01) | LOC: F3E 11:43 ==